=== PATIENT | female | born 1985 ===

== ENCOUNTER 2024-06-29 08:50 | Outpatient (CLI) | payer OTHER, SELFPAY ==
--- NOTE | 2024-06-29 08:56 | XR_ITS ---
WS: [id number] Exam: XR chest 2V* [id number] Date/Time of Exam: 06/29/2024 8:56 AM Reason For Exam: URI - ACUTE No priors. The lungs are clear and fully inflated. Normal cardiomediastinal silhouette. Unremarkable bony elemen ts. Minimal spondylosis of the T-spine. XR/XR chest 2V* [id number] IMPRESSION: 1. Negative chest.
== END 2024-06-29 08:51 | disposition home or self-care (01) ==
PROVIDERS: PCP Nurse Practitioner Family; Visit Provider Nurse Practitioner Family
DX: J06.9 Acute upper respiratory infection, unspecified (principal); M47.814 Spondylosis without myelopathy or radiculopathy, thoracic region
CPT/HCPCS: 71046